=== PATIENT | female | born 1950 | race Caucasian/White ===

== ENCOUNTER 2018-07-17 06:17 | Inpatient (IN) | END 2018-07-24 15:15 | DRG 454 ==

== ENCOUNTER 2018-07-24 15:28 | Inpatient (IN) | payer MEDICARE, OTHER ==
[~2018-07-24] VITALS: Ht 165.1 cm; Wt 109.9 kg
[~2018-07-24 15:28] MED LIST: AMIT25TA9 PO; ESTR1TAB23 PO; GABA300C16 PO; LEVO150T64 PO
[2018-07-24] MEDS ORDERED: BISACODYL 10 MG SUPP PR PRN (16:00)
[2018-07-24] MEDS ORDERED: LACTULOSE 30ML CUP PO PRN (16:00)
[2018-07-24] MEDS ORDERED: MAGNESIUM HYDROXIDE 30ML CUP PO PRN (16:00)
[2018-07-24] MEDS ORDERED: PENDING SANTYL ORDER FOR WOUND CARE XX PRN (16:00)
--- NOTE | 2018-07-24 16:20 | NUR ---
Patient is a new admit from [facility]. patient is alert and breathing even.no SOB. no c/o pain at this time.lung sounds clear bilaterally. patient c/o sore throat d/t patient was intubated during her surgery. patient refused to assess her skin. stated that she wanter to rest today. explained risks and benefits. offered multiple times but patient still refused. Patient with episode of getting up unassisted. reminded patient to call when needed help. Patient with 1 Ipad and 1 iphone. asked patient if she wants to keep in the safe. patient refused and patient chose to keep it at bedside. explained the risks and benefits and still wants to keep at bed side. Verified Rehab Orders with Dr. Becerril and Verified all medications orders with Dr. Rosenbaum.
[2018-07-24] MEDS ORDERED: PHENOL 1.4% SOLN 180 ML BTL MT PRN (16:30)
[2018-07-24] MEDS ORDERED: METHOCARBAMOL 500 MG TAB PO PRN (16:30)
[2018-07-24] MEDS ORDERED: PROCHLORPERAZINE 10 MG TAB NGT PRN (16:30)
[2018-07-24] MEDS ORDERED: AL HYDROX/MG HYDROX/SIMETH 30 ML CUP PO PRN (16:30)
[2018-07-24] MEDS ORDERED: HYDROCODONE/APAP (5/325) TAB PO PRN ×2 (16:30)
[2018-07-24] MEDS ORDERED: NALOXONE (0.4 MG/ML) INJ IV PRN (16:30)
[2018-07-24] MEDS ORDERED: ONDANSETRON 4 MG INJ IV PRN (16:30)
[2018-07-24] MEDS ORDERED: HYDROmorphONE 0.5 MG/0.5 ML SYG IV PRN (16:30)
[2018-07-24 16:32] VITALS: Ht 165.1 cm; Wt 109.9 kg
[2018-07-24 16:42] VITALS: BP 166/80; PULSE 75; RESP 18
[2018-07-24] MEDS: ACETAMINOPHEN 325 MG TAB PO PRN (18:09)
[2018-07-24 20:00] VITALS: BP 157/77; PULSE 74; RESP 18
[2018-07-24] MEDS: CEPASTAT LOZENGE MT PRN (20:20)
[2018-07-24] MEDS: SENNA TAB PO SCH (20:20)
[2018-07-24] MEDS: DOCUSATE SODIUM 100 MG CAP PO SCH (20:20)
[2018-07-24] MEDS: GABAPENTIN 300 MG CAP PO SCH (20:21)
[2018-07-24] MEDS: AMITRIPTYLINE 25 MG TAB PO SCH (20:21)
[2018-07-24] MEDS: FERROUS FUMARATE (SR) TAB PO SCH (20:21)
[2018-07-25] MEDS: CEPASTAT LOZENGE MT PRN ×4 (04:13→16:44)
--- NOTE | 2018-07-25 05:50 | NUR ---
Pt resting in bed with eyes close. Pt remains stable and vitals noted WNL. Pt complained of sore throat and was given PRN Cepastat with relief. No complaints of pain on her incision site. Pt is continent of both bowel and bladder and goes to the toilet using FWW; no BM noted. Skin assessment done and noted with incision on her abdomen and 3 incisions on her back. Dressing clean, dry and intact. Hourly roundings done. Bed placed on lowest position. Both side rails up for safety. Call light and bed side table within pt's reach.
[2018-07-25] MEDS: LEVOTHYROXINE 150 MCG TAB PO SCH (06:22)
[2018-07-25 07:45] VITALS: BP 134/65; PULSE 78; RESP 20
[2018-07-25] MEDS: FERROUS FUMARATE (SR) TAB PO SCH ×2 (08:59→20:13)
[2018-07-25] MEDS: GABAPENTIN 300 MG CAP PO SCH ×2 (08:59→20:13)
[2018-07-25] MEDS: DOCUSATE SODIUM 100 MG CAP PO SCH ×2 (08:59→20:45)
[2018-07-25] MEDS: ESTRADIOL 1 MG TAB PO SCH (08:59)
--- NOTE | 2018-07-25 11:39 | NUR ---
1000 - Dr. Becerril at the unit with order for SCD's and may Titrate Oxygen to keep >92%. 1120 - spoke with Dr. Sanders over the phone with order to repeat Blood Culture x1 and dressing change order plus a wound consult. According to the doctor he just changed the dressing yesterday when the patient was still at the other floor. Per MD follow wound consult recommendation but keep an eye on the back incision with daily dressing change. 1134 - Dr. Royer Alcala at the unit covering for Dr. Rosenbaum and clarified fluid restriction order. Per MD labs are within normal limit and fluid restriction can be discontinued.
[2018-07-25 14:00] VITALS: BP 137/66; PULSE 83; RESP 18
--- NOTE | 2018-07-25 18:35 | NUR ---
End of shift summary note Patient alert, oriented and able to make needs known without complaints of pain during the shift. No noted respiratory distress and remained on oxygen via nasal cannula at 2 liters per minute with oxygen saturation ranging from 94%-97% due to SOB upon exertion. Patient was provided with recreational activity like watching TV. Built-in bed alarm activated for safety and bed placed on lowest position. Call light and bedside table placed within reach. Needs attended, kept clean and comfortable. Will endorse to next shift.
--- NOTE | 2018-07-25 19:58 | CONS ---
DATE OF ADMISSION: 07/24/2018 DATE OF CONSULTATION: 07/25/2018 TYPE OF CONSULTATION: Rehabilitation post-admission physician evaluation. REHABILITATION IMPAIRMENT CATEGORY: Spinal stenosis, degenerative disk disease, adhesions and lumbar radiculopathy status post lumbar decompression and fusion. ACTIVE COMORBIDITIES: 1. Acute pain syndrome. 2. Obesity. 3. Status post acute renal failure. 4. Hyponatremia. 5. Hypothyroidism. 6. Postop hypotension. 7. Anemia. 8. Postoperative tachycardia. 9. Impairments in self-care and mobility. HISTORY OF PRESENT ILLNESS: The patient is a very pleasant 67-year-old female who had noted increasi ng severe, radiating low back pain despite conservative measures. The patient was noted to have sigifredo re lumbar spinal stenosis and degenerative disk disease along with neurogenic claudication, unstable degenerative spondylolisthesis and bilateral radiculopathy. The patient underwent a decompressive nasima mbar laminectomy on 07/17/2018. The patient's hospital course was notable for acute renal failure, h yponatremia requiring fluid restriction, anemia requiring transfusion, hypothyroidism and postoperati ve tachycardia along with postoperative hypotension. The patient has now been cleared to transfer to the rehabilitation unit for comprehensive interdisciplinary rehab care. FUNCTIONAL HISTORY: Prior to recent events, she was independent in self-care tasks and mobility. Cu rrently, patient requires minimal to moderate assist for self-care and mobility tasks. I have reviewed the preadmission screen and the patient's current functional status is consistent wit h the preadmission screen. FAMILY AND SOCIAL HISTORY: The patient reports living at home alone and hopes to return there upon d ischarge. PAST MEDICAL HISTORY: 1. Asthma. 2. Hypothyroidism. CURRENT MEDICATIONS: 1. Tylenol p.r.n. 2. Elavil 25 mg p.o. at bedtime. 3. Ferrous fumarate 1 tab p.o. b.i.d. 4. Colace 100 mg p.o. b.i.d. 5. Estrace 1 mg p.o. daily. 6. Neurontin 300 mg p.o. b.i.d. 7. [place] p.r.n. 8. Dilaudid p.r.n. 9. Synthroid 150 mcg p.o. q.a.m. 10. Robaxin 500 mg p.o. q.8h. p.r.n. ALLERGIES: SULFA. PHYSICAL EXAMINATION: VITAL SIGNS: She is currently afebrile with stable vital signs. HEENT: Extraocular motions appear intact. Oropharynx clear. NECK: Supple. LUNGS: Clear anteriorly. CARDIAC: S1, S2. ABDOMEN: Soft, nontender, positive bowel sounds. NEUROLOGIC: She is awake and alert and oriented x3. She will follow simple 1-step commands. Crania l nerves are grossly intact. She has good strength in bilateral upper extremities. She has antigrav ity strength in bilateral lower extremities. PLAN: The patient has been admitted for comprehensive interdisciplinary acute rehab and is anticipat ed to tolerate 3 hours of daily therapy in divided doses for at least 5/7 days a week. The treatment plan will include: 1. Physical therapy to focus on bed mobility, transfers, and household ambulation with the goal of h aving the patient reach a modified independent level. 2. Occupational therapy to focus on hygiene, grooming, dressing, bathing, and toileting activities w ith the goal of having the patient reach a modified independent level. 3. Rehabilitation nursing for carryover of therapeutic interventions, the goal of continent of bowel and bladder, and pain adequately managed on oral medications in addition to improved wound healing. REHABILITATION BARRIER: Pain. INTERVENTION FOR BARRIER: Interdisciplinary approach. I acknowledge that I performed a full physical examination on this patient within 24 hours of admissi on to the rehabilitation unit and believe the patient is a good candidate for comprehensive interdisc iplinary rehab care and is anticipated to make reasonable goals in a reasonable period of time as out lined above. Dictated By: CADY BLACK MD LY/NTS Conf#: [id number] DID#: [id number] CC: CADY BLACK MD;*EndCC*
[2018-07-25 20:00] VITALS: BP 139/68; PULSE 86; RESP 18
[2018-07-25] MEDS: AMITRIPTYLINE 25 MG TAB PO SCH (20:13)
[2018-07-25] MEDS: ACETAMINOPHEN 325 MG TAB PO PRN (20:15)
[2018-07-25] MEDS: SENNA TAB PO SCH (20:45)
[2018-07-26] MEDS: CEPASTAT LOZENGE MT PRN ×3 (01:48→21:06)
[2018-07-26 02:00] VITALS: BP 134/66; PULSE 82; RESP 18
--- NOTE | 2018-07-26 06:30 | NUR ---
Assisted to toilet with SBA, voiding well to yellow urine. Pt wears her LSO brace when OOB. On O2 at 2l/min per NC, no respiratory distress noted. Medicated with Tylenol for mild back pain with good effect. Had Cepastat for throat pain, helpful. Needs attended. Call light within reached, bed alarm activated,. No acute distress noted.
[2018-07-26] MEDS: LEVOTHYROXINE 150 MCG TAB PO SCH (07:02)
[2018-07-26] MEDS: DOCUSATE SODIUM 100 MG CAP PO SCH ×2 (08:43→21:00)
[2018-07-26] MEDS: FERROUS FUMARATE (SR) TAB PO SCH ×2 (08:43→21:00)
[2018-07-26] MEDS: GABAPENTIN 300 MG CAP PO SCH ×2 (08:43→20:48)
[2018-07-26] MEDS: ESTRADIOL 1 MG TAB PO SCH ×2 (08:43→08:48)
--- NOTE | 2018-07-26 09:30 | NUR ---
Received a call from Dr. Sanders checking on his patient. Reported that patient was doing good without oxygen on while at rest satting at 99%-100%. MD recommended for patient to use incentive spirometer and educated patient regarding it. Will continue to monitor patient.
--- NOTE | 2018-07-26 12:17 | CONS ---
Date/Time of Note Date/Time of Note DATE: 07/26/18 TIME: 12:12 Assessment/Plan Assessment/Plan Hospital Course S/p decompression laminectomy for DDD/spinal stenosis with radiculopathy (07/17) now in rehab Assessment/Plan 1. Pain medication as written 2. DVT ppx 3. PT per ARU, OOB activity 4. Lozenge/spray prn sore throat 5. Hyponatremia resolved 6. NENA resolved 7. Monitor CBC. S/p transfusions Result Diagram: 07/25/18 0635 07/25/18 0635 Consultation Date/Type/Reason Admit Date/Time Jul 24, 2018 at 15:44 Date of Consultation: Jul 25, 2018 Type of Consult Internal Medicine Reason for Consultation Medical comanagement Medical comanagement, hyponatremia, anemia Hx of Present Illness 67yo F who is s/p lumbar surgery (decompressive lumbar laminectomy) on 07/17/18 d/t severe spinal stenosis with DDD and radicular symptoms who is now in ARU. Pt's post-op course c/b hyponatremia (now resolved with fluid restriction), NENA (resolved with fluids) and anemia requiring transfusion. Currently her main complaint is dry mouth and sore throat. She is using lozenges and throat spray. She is ambulating. No focal weakness. Overall feels fatigued but recognizes strength is improving. No fevers. Pain tolerable on medications. Constitutional: other (fatigue) Eyes: no complaints ENT: sore throat Cardiovascular: no complaints Gastrointestinal: no complaints Genitourinary: no complaints Musculoskeletal: other (appropriate back pain) Neurologic: no complaints Past Medical History Medical History: no pertinent history Medications Current Medications Docusate Sodium (Colace) 100 mg BID PO Last administered on 07/26/18at 08:43; Admin Dose 100 MG; Start 07/24/18 at 21:00 Senna (Senokot) 1 tab HS PO Last administered on 07/24/18at 20:20; Admin Dose 1 TAB; Start 07/24/18 at 21:00 Magnesium Hydroxide (Milk Of Mag) 30 ml BID PRN PO CONSTIPATION; Start 07/24/18 at 16:00 Lactulose (Enulose) 20 gm DAILY PRN PO CONSTIPATION; Start 07/24/18 at 16:00 Bisacodyl (Dulcolax Supp) 10 mg DAILY PRN [place] CONSTIPATION; Start 07/24/18 at 16:00 Acetaminophen (Tylenol Tab) 650 mg Q4H PRN PO PAIN Last administered on 07/25/18at 20:15; Admin Dose 650 MG; Start 07/24/18 at 16:00 [facility] This patient lopez... PRN PRN XX wound; Start 07/24/18 at 16:00 Al Hydrox/Mg Hydrox/Simethicone (Mag-Al Plus) 15 ml Q4 PRN PO upset stomach; Start 07/24/18 at 16:30 Amitriptyline HCl (Elavil) 25 mg HS PO Last administered on 07/25/18at 20:13; Admin Dose 25 MG; Start 07/24/18 at 21:00 Docusate Sodium/ Ferrous Fumarate (Yue-Sequels) 1 tab BID PO Last a dministered on 07/26/18at 08:43; Admin Dose 1 TAB; Start 07/24/18 at 21:00 Estradiol (Estrace) 1 mg DAILY PO Last administered on 07/25/18at 08:59; Admin Dose 1 MG; Start 07/25/18 at 09:00 Gabapentin (Neurontin) 300 mg BID PO Last administered on 07/25/18at 20:13; Admin Dose 300 MG; Start 07/24/18 at 21:00 Acetaminophen/ Hydrocodone Bitart ([place] (5/325)) 1 tab Q4H PRN PO MODERATE PAIN LEVEL 4-6; Start 07/24/18 at 16:30 Acetaminophen/ Hydrocodone Bitart ([place] (5/325)) 2 tab Q4H PRN PO MODERATE PAIN LEVEL 4-6; Start 07/24/18 at 16:30 Hydromorphone HCl (Dilaudid) 0.5 mg Q3H PRN IV SEVERE PAIN LEVEL 7-10; Start 07/24/18 at 16:30 Levothyroxine Sodium (Synthroid) 150 mcg DAILY@06 PO Last administered on 07/26/18at 07:02; Admin Dose 150 MCG; Start 07/25/18 at 06:00 Methocarbamol (Robaxin) 500 mg Q8H PRN PO muscle spasm ; Start 07/24/18 at 16:30 Naloxone HCl (Narcan) 0.2 mg ONCE PRN IV narcotic overdose; Start 07/24/18 at 16:30 Ondansetron HCl (Zofran Inj) 4 mg Q6H PRN IV NAUSEA AND/OR VOMITING; Start 07/24/18 at 16:30 Phenol (Cepastat Lozenge) 1 lozenge Q1H PRN [place] sore throat Last administered on 07/26/18at 07:05; Admin Dose 1 LOZENGE; Start 07/24/18 at 16:30 Phenol (Chloraseptic Throat [place]) 2 spray Q2H PRN [place] SORE THROAT; Start 07/24/18 at 16:30 Prochlorperazine (Compazine) 10 mg Q4H PRN NGT NAUSEA AND/OR VOMITING; Start 07/24/18 at 16:30 Allergies: Coded Allergies: Sulfa (Sulfonamide Antibiotics) (Verified Allergy, Unknown, 07/17/18) perfume (Verified Allergy, Unknown, CONGESTION,CANT BREATHE, 07/17/18) pork derived (porcine) (Verified Allergy, Unknown, HIVES, 07/17/18) shellfish derived (Verified Allergy, Unknown, SWELLING,HIVES, 07/17/18) Uncoded Allergies: FLUORIDE PREPARATION (Allergy, Unknown, BUMPS IN CHIN, 07/16/18) Past Surgical History Past Surgical Hx: noncontributory Family History Significant Family History: no pertinent family hx Social History Alcohol Use: rarely Smoking Status: Never smoker Drug Use: none Other Social History lives at home, previously independent with ADLs Exam/Review of Systems Vital Signs Vitals Vital Signs Date Temp Pulse Resp B/P (MAP) Pulse Ox O2 O2 Flow FiO2 Time Delivery Rate 07/26/18 Nasal 2.0 08:30 Cannula 07/26/18 98.7 82 18 134/66 7 02:00 (88) Intake and Output 07/25/18 07/25/18 07/26/18 1515:00 23:00 07:00 IntakeIntake Total 950 ml 580 ml BalanceBalance 950 ml 580 ml Exam Constitutional: alert, oriented, well developed Psych: nl mood/affect Head: normocephalic, atraumatic Eyes: EOMI ENMT: mucosa pink and moist Neck: supple Respiratory: clear to auscultation Cardiovascular: regular rate and rhythm Gastrointestinal: soft, non-tender Musculoskeletal: nl extremities to inspection Neurological: WEB ENGINEER II-XII intact, nl mental status, nl strength Medications Medications Current Medications Docusate Sodium (Colace) 100 mg BID PO Last administered on 07/26/18 08:43; Admin Dose 100 MG; Start 07/24/18 at 21:00 Senna (Senokot) 1 tab HS PO Last administered on 07/24/18at 20:20; Admin Dose 1 TAB; Start 07/24/18 at 21:00 Magnesium Hydroxide (Milk Of Mag) 30 ml BID PRN PO CONSTIPATION; Start 07/24/18 at 16:00 Lactulose (Enulose) 20 gm DAILY PRN PO CONSTIPATION; Start 07/24/18 at 16:00 Bisacodyl (Dulcolax Supp) 10 mg DAILY PRN [place] CONSTIPATION; Start 07/24/18 at 16:00 Acetaminophen (Tylenol Tab) 650 mg Q4H PRN PO PAIN Last administered on 07/25/18at 20:15; Admin Dose 650 MG; Start 07/24/18 at 16:00 Miscellaneous Information (Pending [facility] Order For Wound Care) This patient lopez... PRN PRN XX wound; Start 07/24/18 at 16:00 Al Hydrox/Mg Hydrox/Simethicone (Mag-Al Plus) 15 ml Q4 PRN PO upset stomach; Start 07/24/18 at 16:30 Amitriptyline HCl (Elavil) 25 mg HS PO Last administered on 07/25/18at 20:13; Admin Dose 25 MG; Start 07/24/18 at 21:00 Docusate Sodium/ Ferrous Fumarate (Yue-Sequels) 1 tab BID PO Last administered on 07/26/18at 08:43; Admin Dose 1 TAB; Start 07/24/18 at 21:00 Estradiol (Estrace) 1 mg DAILY PO Last administered on 07/25/18at 08:59; Admin Dose 1 MG; Start 07/25/18 at 09:00 Gabapentin (Neurontin) 300 mg BID PO Last administered on 07/25/18at 20:13; Admin Dose 300 MG; Start 07/24/18 at 21:00 Acetaminophen/ Hydrocodone Bitart ([place] (5/325)) 1 tab Q4H PRN PO MODERATE PAIN LEVEL 4-6; Start 07/24/18 at 16:30 Acetaminophen/ Hydrocodone Bitart ([place] (5/325)) 2 tab Q4H PRN PO MODERATE PAIN LEVEL 4-6; Start 07/24/18 at 16:30 Hydromorphone HCl (Dilaudid) 0.5 mg Q3H PRN IV SEVERE PAIN LEVEL 7-10; Start 07/24/18 at 16:30 Levothyroxine Sodium (Synthroid) 150 mcg DAILY@06 PO Last administered on 07/26/18at 07:02; Admin Dose 150 MCG; Start 07/25/18 at 06:00 Methocarbamol (Robaxin) 500 mg Q8H PRN PO muscle spasm ; Start 07/24/18 at 16:30 Naloxone HCl (Narcan) 0.2 mg ONCE PRN IV narcotic overdose; Start 07/24/18 at 16:30 Ondansetron HCl (Zofran Inj) 4 mg Q6H PRN IV NAUSEA AND/OR VOMITING; Start 07/24/18 at 16:30 Phenol (Cepastat Lozenge) 1 lozenge Q1H PRN [place] sore throat Last administered on 07/26/18at 07:05; Admin Dose 1 LOZENGE; Start 07/24/18 at 16:30 Phenol (Chloraseptic Throat [place]) 2 spray Q2H PRN [place] SORE THROAT; Start 07/24/18 at 16:30 Prochlorperazine (Compazine) 10 mg Q4H PRN NGT NAUSEA AND/OR VOMITING; Start 07/24/18 at 16:30 BRYCE MORENO MD Jul 26, 2018 12:16
[2018-07-26 14:20] VITALS: BP 130/62; PULSE 94; RESP 18
[2018-07-26] MEDS: ACETAMINOPHEN 325 MG TAB PO PRN ×2 (14:52→20:50)
--- NOTE | 2018-07-26 15:26 | NUR ---
During afternoon V/S check noted patient with slightly elevated temperature of 99.4F (temporal artery scan)/99.7F (oral). Noted room to be warm and encouraged patient to drink more fluids and offered cool compress. Patient complains of pain on both anterior and posterior incisions and gave Tylenol for relief. Will continue to monitor patient.
--- NOTE | 2018-07-26 15:55 | NUR ---
Patient's temperature went down to 98.4F and still encourage patient to hydrate. Continuous monitoring provided.
--- NOTE | 2018-07-26 18:28 | NUR ---
End of shift summary note: Patient seen not in distress or discomfort; able to verbalize needs with complaints of pain during the shift and was medicated with Tylenol 650mg PO PRN Q4H; relief noted. No shortness of breath or difficulty of breathing noted. All due medications given. Health teaching provided regarding medication Neurontin. Participated with therapy as tolerated. Recreational activity offered like watching TV. Call light and bedside table placed within reach. Bed alarm activated for safety. Continuous monitoring provided and needs attended. Will endorse to next shift.
[2018-07-26 20:00] VITALS: BP 132/65; PULSE 86; RESP 18
[2018-07-26] MEDS: AMITRIPTYLINE 25 MG TAB PO SCH (20:48)
[2018-07-26] MEDS: SENNA TAB PO SCH (21:00)
[2018-07-27 02:00] VITALS: BP 127/64; PULSE 81; RESP 18
--- NOTE | 2018-07-27 06:18 | NUR ---
Slept well. Resp unlabored. Medicated for back pain with tylenol with good effect. Assisted to toilet, voiding well without difficulty. Needs attended. Call light within reached, bed alarm activated. No acute distress noted.
[2018-07-27] MEDS: LEVOTHYROXINE 150 MCG TAB PO SCH (06:26)
[2018-07-27] MEDS: CEPASTAT LOZENGE MT PRN ×2 (06:27→10:36)
[2018-07-27 08:00] VITALS: BP 148/74; PULSE 85; RESP 20
[2018-07-27] MEDS: GABAPENTIN 300 MG CAP PO SCH ×2 (08:29→20:39)
[2018-07-27] MEDS: FERROUS FUMARATE (SR) TAB PO SCH ×2 (08:29→20:39)
[2018-07-27] MEDS: ESTRADIOL 1 MG TAB PO SCH (08:29)
[2018-07-27] MEDS: DOCUSATE SODIUM 100 MG CAP PO SCH ×2 (08:29→20:39)
--- NOTE | 2018-07-27 09:47 | PN ---
Date/Time of Note Date/Time of Note DATE: 07/27/18 TIME: 09:47 Objective Vital Signs Date Temp Pulse Resp B/P (MAP) Pulse Ox O2 O2 Flow FiO2 Time Delivery Rate 07/27/18 2.0 05:46 07/27/18 98.4 81 18 127/64 95 Room Air 02:00 (85) Intake and Output 07/26/18 07/26/18 07/27/18 1515:00 23:00 07:00 IntakeIntake Total 900 ml BalanceBalance 900 ml Exam INTERDISCIPLINARY TEAM CONFERENCE EXAM PULM-cta ABD-soft, b.s. BOWEL- Cont BLADDER-Cont SKIN- improving OT- DRESSING-min BATHING-min TOILETING-min PT- BED MOBILITY-sba TRANSFERS-sba AMBULATION-sba 150 feet A/P- Interdisciplinary team conference held today. Please see interdisciplinary sheet. Working toward d.c. on 08/01 with post discharge follow up of physical therapy, occupational therapy. Results/Medications Result Diagram: 07/27/1862007/27/18 0621 Results 24 hrs Laboratory Tests Test 07/27/18 06:21 White Blood Count 6.0 Red Blood Count 3.53 L Hemoglobin 10.2 L Hematocrit 31.4 L Mean Corpuscular Volume 89.0 Mean Corpuscular Hemoglobin 28.9 L Mean Corpuscular Hemoglobin Concent 32.5 Red Cell Distribution Width 13.7 Platelet Count 371 # Mean Platelet Volume 9.7 Immature Granulocytes % 0.800 H Neutrophils % 59.7 Lymphocytes % 22.9 Monocytes % 8.7 Eosinophils % 7.2 H Basophils % 0.7 Nucleated Red Blood Cells % 0.0 Immature Granulocytes # 0.050 H Neutrophils # 3.6 Lymphocytes # 1.4 Monocytes # 0.5 Eosinophils # 0.4 Basophils # 0.0 Nucleated Red Blood Cells # 0.0 Sodium Level 135 Potassium Level 4.0 Chloride Level 103 Carbon Dioxide Level 27 Anion Gap 5 Blood Urea Nitrogen 10 Creatinine 0.63 Est Glomerular Filtrat Rate mL/min > 60 Glucose Level 98 Calcium Level 8.7 Medications Current Medications Docusate Sodium (Colace) 100 mg BID PO Last administered on 07/27/18at 08:29; Admin Dose 100 MG; Start 07/24/18 at 21:00 Senna (Senokot) 1 tab HS PO Last administered on 07/24/18at 20:20; Admin Dose 1 TAB; Start 07/24/18 at 21:00 Magnesium Hydroxide (Milk Of Mag) 30 ml BID PRN PO CONSTIPATION; Start 07/24/18 at 16:00 Lactulose (Enulose) 20 gm DAILY PRN PO CONSTIPATION; Start 07/24/18 at 16:00 Bisacodyl (Dulcolax Supp) 10 mg DAILY PRN [place] CONSTIPATION; Start 07/24/18 at 16:00 Acetaminophen (Tylenol Tab) 650 mg Q4H PRN PO PAIN Last administered on 07/26/18at 20:50; Admin Dose 650 MG; Start 07/24/18 at 16:00 Miscellaneous Information (Pending [facility] Order For Wound Care) This patient lopez... PRN PRN XX wound; Start 07/24/18 at 16:00 Al Hydrox/Mg Hydrox/Simethicone (Mag-Al Plus) 15 ml Q4 PRN PO upset stomach; Start 07/24/18 at 16:30 Amitriptyline HCl (Elavil) 25 mg HS PO Last administered on 07/26/18at 20:48; Admin Dose 25 MG; Start 07/24/18 at 21:00 Docusate Sodium/ Ferrous Fumarate (Yue-Sequels) 1 tab BID PO Last administered on 07/27/18at 08:29; Admin Dose 1 TAB; Start 07/24/18 at 21:00 Estradiol (Estrace) 1 mg DAILY PO Last administered on 07/27/18at 08:29; Admin Dose 1 MG; Start 07/25/18 at 09:00 Gabapentin (Neurontin) 300 mg BID PO Last administered on 07/27/18at 08:29; Admin Dose 300 MG; Start 07/24/18 at 21:00 Acetaminophen/ Hydrocodone Bitart ([place] (5/325)) 1 tab Q4H PRN PO MODERATE PAIN LEVEL 4-6; Start 07/24/18 at 16:30 Acetaminophen/ Hydrocodone Bitart ([place] (5/325)) 2 tab Q4H PRN PO MODERATE PAIN LEVEL 4-6; Start 07/24/18 at 16:30 Hydromorphone HCl (Dilaudid) 0.5 mg Q3H PRN IV SEVERE PAIN LEVEL 7-10; Start 07/24/18 at 16:30 Levothyroxine Sodium (Synthroid) 150 mcg DAILY@06 PO Last administered on 07/27/18at 06:26; Admin Dose 150 MCG; Start 07/25/18 at 06:00 Methocarbamol (Robaxin) 500 mg Q8H PRN PO muscle spasm ; Start 07/24/18 at 16:30 Naloxone HCl (Narcan) 0.2 mg ONCE PRN IV narcotic overdose; Start 07/24/18 at 16:30 Ondansetron HCl (Zofran Inj) 4 mg Q6H PRN IV NAUSEA AND/OR VOMITING; Start 07/24/18 at 16:30 Phenol (Cepastat Lozenge) 1 lozenge Q1H PRN [place] sore throat Last administered on 07/27/18at 06:27; Admin Dose 1 LOZENGE; Start 07/24/18 at 16:30 Phenol (Chloraseptic Throat [place]) 2 spray Q2H PRN [place] SORE THROAT; Start 07/24/18 at 16:30 Prochlorperazine (Compazine) 10 mg Q4H PRN NGT NAUSEA AND/OR VOMITING; Start 07/24/18 at 16:30 CADY BLACK MD Jul 27, 2018 09:47
--- NOTE | 2018-07-27 11:00 | NUR ---
Medication regimen reviewed with Dr Becerril with a new order of discontinue Dilaudid IV. Noted & carried out. Patient aware & agrees.
--- NOTE | 2018-07-27 12:39 | CONS ---
Date/Time of Note Date/Time of Note DATE: 07/27/18 TIME: 12:38 Assessment/Plan Assessment/Plan Assessment/Plan 1. Pain medication as written 2. DVT ppx 3. PT per ARU, OOB activity 4. Lozenge/spray prn sore throat 5. Hyponatremia resolved 6. NENA resolved 7. Monitor CBC. S/p transfusions Result Diagram: 07/27/18 0621 07/27/18 0621 Results 24hrs Laboratory Tests Test 07/27/18 06:21 White Blood Count 6.0 Red Blood Count 3.53 L Hemoglobin 10.2 L Hematocrit 31.4 L Mean Corpuscular Volume 89.0 Mean Corpuscular Hemoglobin 28.9 L Mean Corpuscular Hemoglobin Concent 32.5 Red Cell Distribution Width 13.7 Platelet Count 371 # Mean Platelet Volume 9.7 Immature Granulocytes % 0.800 H Neutrophils % 59.7 Lymphocytes % 22.9 Monocytes % 8.7 Eosinophils % 7.2 H Basophils % 0.7 Nucleated Red Blood Cells % 0.0 Immature Granulocytes # 0.050 H Neutrophils # 3.6 Lymphocytes # 1.4 Monocytes # 0.5 Eosinophils # 0.4 Basophils # 0.0 Nucleated Red Blood Cells # 0.0 Sodium Level 135 Potassium Level 4.0 Chloride Level 103 Carbon Dioxide Level 27 Anion Gap 5 Blood Urea Nitrogen 10 Creatinine 0.63 Est Glomerular Filtrat Rate mL/min > 60 Glucose Level 98 Calcium Level 8.7 Consultation Date/Type/Reason Admit Date/Time Jul 24, 2018 at 15:44 Initial Consult Date 07/25/18 24 HR Interval Summary Free Text/Dictation Up in chair. Still has sore throat, lozenges helping Exam/Review of Systems Vital Signs Vitals Vital Signs Date Temp Pulse Resp B/P (MAP) Pulse Ox O2 O2 Flow FiO2 Time Delivery Rate 07/27/18 2.0 05:46 07/27/18 98.4 81 18 127/64 95 Room Air 02:00 (85) Intake and Output 07/26/18 07/26/18 07/27/18 1515:00 23:00 07:00 IntakeIntake Total 900 ml BalanceBalance 900 ml Exam Constitutional: alert Respiratory: clear to auscultation Cardiovascular: regular rate and rhythm Gastrointestinal: soft, non-tender Extremities: No edema Medications Medications Current Medications Docusate Sodium (Colace) 100 mg BID PO Last administered on 07/27/18 08:29; Admin Dose 100 MG; Start 07/24/18 at 21:00 Senna (Senokot) 1 tab HS PO Last administered on 07/24/18at 20:20; Admin Dose 1 TAB; Start 07/24/18 at 21:00 Magnesium Hydroxide (Milk Of Mag) 30 ml BID PRN PO CONSTIPATION; Start 07/24/18 at 16:00 Lactulose (Enulose) 20 gm DAILY PRN PO CONSTIPATION; Start 07/24/18 at 16:00 Bisacodyl (Dulcolax Supp) 10 mg DAILY PRN [place] CONSTIPATION; Start 07/24/18 at 16:00 Acetaminophen (Tylenol Tab) 650 mg Q4H PRN PO PAIN Last administered on 07/26/18at 20:50; Admin Dose 650 MG; Start 07/24/18 at 16:00 Miscellaneous Information (Pending Santyl Order For Wound Care) This patient lopez... PRN PRN XX wound; Start 07/24/18 at 16:00 Al Hydrox/Mg Hydrox/Simethicone (Mag-Al Plus) 15 ml Q4 PRN PO upset stomach; Start 07/24/18 at 16:30 Amitriptyline HCl (Elavil) 25 mg HS PO Last administered on 07/26/18at 20:48; Admin Dose 25 MG; Start 07/24/18 at 21:00 Docusate Sodium/ Ferrous Fumarate (Yue-Sequels) 1 tab BID PO Last administered on 07/27/18at 08:29; Admin Dose 1 TAB; Start 07/24/18 at 21:00 Estradiol (Estrace) 1 mg DAILY PO Last administered on 07/27/18at 08:29; Admin Dose 1 MG; Start 07/25/18 at 09:00 Gabapentin (Neurontin) 300 mg BID PO Last administered on 07/27/18 08:29; Admin Dose 300 MG; Start 07/24/18 at 21:00 Acetaminophen/ Hydrocodone Bitart ([place] (5/325)) 1 tab Q4H PRN PO MODERATE PAIN LEVEL 4-6; Start 07/24/18 at 16:30 Acetaminophen/ Hydrocodone Bitart ([place] (5/325)) 2 tab Q4H PRN PO MODERATE PAIN LEVEL 4-6; Start 07/24/18 at 16:30 Hydromorphone HCl (Dilaudid) 0.5 mg Q3H PRN IV SEVERE PAIN LEVEL 7-10; Start 07/24/18 at 16:30 Levothyroxine Sodium (Synthroid) 150 mcg DAILY@06 PO Last administered on 07/27/18at 06:26; Admin Dose 150 MCG; Start 07/25/18 at 06:00 Methocarbamol (Robaxin) 500 mg Q8H PRN PO muscle spasm ; Start 07/24/18 at 16:30 Naloxone HCl (Narcan) 0.2 mg ONCE PRN IV narcotic overdose; Start 07/24/18 at 16:30 Ondansetron HCl (Zofran Inj) 4 mg Q6H PRN IV NAUSEA AND/OR VOMITING; Start 07/24/18 at 16:30 Phenol (Cepastat Lozenge) 1 lozenge Q1H PRN MT sore throat Last administered on 07/27/18at 10:36; Admin Dose 1 LOZENGE; Start 07/24/18 at 16:30 Phenol (Chloraseptic Throat [place]) 2 spray Q2H PRN [place] SORE THROAT; Start 07/24/18 at 16:30 Prochlorperazine (Compazine) 10 mg Q4H PRN NGT NAUSEA AND/OR VOMITING; Start 07/24/18 at 16:30 URMILA MCDERMOTT MD Jul 27, 2018 12:39
--- NOTE | 2018-07-27 12:44 | NUR ---
WOUND CONSULT FOR INCISIONS: 67 year old female s/p anterior retroperitoneal fusion of lumbosacral spine on 07/17/[address] Fco Sanders. Patient last seen by wound nurse in the acute unit on 07/24/18. Left anterior abdominal and lumbar-sacral incisions. Incisions dry, clean, and intact per photo documentations. Keep incision dry and clean. Please notify Dr. Sanders if any change of condition of incisions. Discussed with RNDulce. - Sammie Tong, BSN RN CWOCN
[2018-07-27 14:00] VITALS: BP 129/81; RESP 19
--- NOTE | 2018-07-27 17:00 | NUR ---
Patient in bed talking to her daughter in the cellphone. Alert, oriented x 4. No SOB. Denies pain. Offered educational materials & TV for recreational activities. Wound dressing change done on patient's incision site in the back & abdomen. No redness & drainage noted. Wound clean & dry. Patient tolerated procedure well. Kept clean & dry. All due meds given. Call light within reach. Bed alarm on & in low position. Kept comfortable.
[2018-07-27 20:00] VITALS: BP 136/68; PULSE 80; RESP 18
[2018-07-27] MEDS: SENNA TAB PO SCH (20:39)
[2018-07-27] MEDS: AMITRIPTYLINE 25 MG TAB PO SCH (20:39)
[2018-07-27] MEDS: ACETAMINOPHEN 325 MG TAB PO PRN (20:40)
[2018-07-28 02:00] VITALS: BP 132/66; PULSE 80; RESP 18
[2018-07-28] MEDS: CEPASTAT LOZENGE MT PRN ×4 (03:03→23:15)
--- NOTE | 2018-07-28 06:23 | NUR ---
Slept well. Medicated for back pain x1 with tylenol with good effect. Voiiding well with SBA to toilet, uses LSO brace when OOB. Needs attended. Call light within reached, bed alarm activated. No acute distress noted. No acute distress noted.
[2018-07-28] MEDS: LEVOTHYROXINE 150 MCG TAB PO SCH (06:51)
[2018-07-28 08:00] VITALS: BP 141/62; PULSE 88; RESP 19
[2018-07-28] MEDS: FERROUS FUMARATE (SR) TAB PO SCH ×2 (08:18→20:12)
[2018-07-28] MEDS: ESTRADIOL 1 MG TAB PO SCH (08:18)
[2018-07-28] MEDS: DOCUSATE SODIUM 100 MG CAP PO SCH ×2 (08:18→20:12)
[2018-07-28] MEDS: GABAPENTIN 300 MG CAP PO SCH ×2 (08:18→20:12)
--- NOTE | 2018-07-28 10:50 | PN ---
Date/Time of Note Date/Time of Note DATE: 07/28/18 TIME: 10:50 Subjective Overall feeling better. Still with sore throat Objective Vital Signs Date Temp Pulse Resp B/P (MAP) Pulse Ox O2 O2 Flow FiO2 Time Delivery Rate 07/28/18 2.0 06:42 07/28/18 98.5 80 18 132/66 97 Room Air 02:00 (88) Intake and Output 07/27/18 07/27/18 07/28/18 1515:00 23:00 07:00 IntakeIntake Total 1200 ml 520 ml BalanceBalance 1200 ml 520 ml Exam pulm-cta abd-soft sba ambulation Results/Medications Result Diagram: 07/27/1862007/27/18620 Medications Current Medications Docusate Sodium (Colace) 100 mg BID PO Last administered on 07/28/18at 08:18; Admin Dose 100 MG; Start 07/24/18 at 21:00 Senna (Senokot) 1 tab HS PO Last administered on 07/27/18at 20:39; Admin Dose 1 TAB; Start 07/24/18 at 21:00 Magnesium Hydroxide (Milk Of Mag) 30 ml BID PRN PO CONSTIPATION; Start 07/24/18 at 16:00 Lactulose (Enulose) 20 gm DAILY PRN PO CONSTIPATION; Start 07/24/18 at 16:00 Bisacodyl (Dulcolax Supp) 10 mg DAILY PRN [place] CONSTIPATION; Start 07/24/18 at 16:00 Acetaminophen (Tylenol Tab) 650 mg Q4H PRN PO PAIN Last administered on 07/27/18at 20:40; Admin Dose 650 MG; Start 07/24/18 at 16:00 [facility] This patient lopez... PRN PRN XX wound; Start 07/24/18 at 16:00 Al Hydrox/Mg Hydrox/Simethicone (Mag-Al Plus) 15 ml Q4 PRN PO upset stomach; Start 07/24/18 at 16:30 Amitriptyline HCl (Elavil) 25 mg HS PO Last administered on 07/27/18at 20:39; Admin Dose 25 MG; Start 07/24/18 at 21:00 Docusate Sodium/ Ferrous Fumarate (Yue-Sequels) 1 tab BID PO Last administered on 07/28/18 08:18; Admin Dose 1 TAB; Start 07/24/18 at 21:00 Estradiol (Estrace) 1 mg DAILY PO Last administered on 07/28/18 08:18; Admin Dose 1 MG; Start 07/25/18 at 09:00 Gabapentin (Neurontin) 300 mg BID PO Last administered on 07/28/18 08:18; Admin Dose 300 MG; Start 07/24/18 at 21:00 Acetaminophen/ Hydrocodone Bitart ([place] (5/325)) 1 tab Q4H PRN PO PAIN LEVEL 1-5; Start 07/24/18 at 16:30 Acetaminophen/ Hydrocodone Bitart ([place] (5/325)) 2 tab Q4H PRN PO PAIN LEVEL 6-10; Start 07/24/18 at 16:30 Levothyroxine Sodium (Synthroid) 150 mcg DAILY@06 PO Last administered on 07/28/18 06:51; Admin Dose 150 MCG; Start 07/25/18 at 06:00 Methocarbamol (Robaxin) 500 mg Q8H PRN PO muscle spasm ; Start 07/24/18 at 16:30 Naloxone HCl (Narcan) 0.2 mg ONCE PRN IV narcotic overdose; Start 07/24/18 at 16:30 Ondansetron HCl (Zofran Inj) 4 mg Q6H PRN IV NAUSEA AND/OR VOMITING; Start 07/24/18 at 16:30 Phenol (Cepastat Lozenge) 1 lozenge Q1H PRN MT sore throat Last administered on 07/28/18 08:18; Admin Dose 1 LOZENGE; Start 07/24/18 at 16:30 Phenol (Chloraseptic Throat [place]) 2 spray Q2H PRN [place] SORE THROAT; Start 07/24/18 at 16:30 Prochlorperazine (Compazine) 10 mg Q4H PRN NGT NAUSEA AND/OR VOMITING; Start 07/24/18 at 16:30 Assessment/Plan Additional Assessment/Plan Rehab- Spinal stenosis, degenerative disk disease, adhesions and lumbar radiculopathy status post lumbar decompression and fusion. Excellent progress. We are working towards home with home health follow up Friday. Acute pain syndrome-under good control Status post acute renal failure. Hyponatremia- resolved Hypothyroidism. Anemia. CADY BLACK MD Jul 28, 2018 10:50
[2018-07-28 14:00] VITALS: BP 130/66; RESP 20
--- NOTE | 2018-07-28 17:00 | NUR ---
Patient in bed browsing her iPad. Alert, oriented x 4. No SOB. Denies pain. Offered educational materials & TV for recreational activities. Wound dressing change done on patient's incision site in the back & abdomen. No redness & drainage noted. Wound clean & dry. Patient tolerated procedure well. Kept clean & dry. All due meds given. Call light within reach. Bed alarm on & in low position. Kept comfortable.
[2018-07-28 20:00] VITALS: BP 123/72; PULSE 91; RESP 20
[2018-07-28] MEDS: SENNA TAB PO SCH (20:12)
[2018-07-28] MEDS: AMITRIPTYLINE 25 MG TAB PO SCH (20:12)
[2018-07-29] MEDS: CEPASTAT LOZENGE MT PRN ×2 (05:48→21:03)
[2018-07-29] MEDS: LEVOTHYROXINE 150 MCG TAB PO SCH (05:48)
[2018-07-29 05:58] VITALS: BP 121/59; PULSE 91; RESP 20
[2018-07-29 07:45] VITALS: BP 128/59; PULSE 88; RESP 18
[2018-07-29] MEDS: GABAPENTIN 300 MG CAP PO SCH ×2 (08:58→21:04)
[2018-07-29] MEDS: DOCUSATE SODIUM 100 MG CAP PO SCH ×2 (08:58→21:00)
[2018-07-29] MEDS: ESTRADIOL 1 MG TAB PO SCH (08:58)
[2018-07-29] MEDS: FERROUS FUMARATE (SR) TAB PO SCH ×2 (08:58→21:04)
--- NOTE | 2018-07-29 09:30 | CONS ---
Date/Time of Note Date/Time of Note DATE: 07/29/18 TIME: 09:28 Assessment/Plan Assessment/Plan Result Diagram: 07/27/18 0621 07/27/18 0621 Results 24hrs 1. Doing well post op lumbar back surgery 2. Nasal congestion, will add ocean spray 3. Anemia is stable Consultation Date/Type/Reason Admit Date/Time Jul 24, 2018 at 15:44 Initial Consult Date 07/25/18 Detailed Summary ENT: other (sinus are full without "colored" nasal dc) Respiratory: No cough, No shortness of breath Cardiovascular: No chest pain, No lightheadedness Gastrointestinal: No no complaints Genitourinary: No no complaints Musculoskeletal: back pain (is less and she has no radic leg pain) Exam/Review of Systems Vital Signs Vitals Vital Signs Date Temp Pulse Resp B/P (MAP) Pulse Ox O2 O2 Flow FiO2 Time Delivery Rate 07/29/18 98.4 88 18 128/59 95 Room Air 07:45 (82) 07/28/18 2.0 06:42 Intake and Output 07/28/18 07/28/18 07/29/18 1515:00 23:00 07:00 IntakeIntake Total 450 ml 650 ml 450 ml BalanceBalance 450 ml 650 ml 450 ml Exam Neck: No jvd Respiratory: clear to auscultation Cardiovascular: regular rate and rhythm Gastrointestinal: soft Extremities: No edema (and no calf tend) Medications Medications Current Medications Docusate Sodium (Colace) 100 mg BID PO Last administered on 07/29/18at 08:58; Admin Dose 100 MG; Start 07/24/18 at 21:00 Senna (Senokot) 1 tab HS PO Last administered on 07/28/18at 20:12; Admin Dose 1 TAB; Start 07/24/18 at 21:00 Magnesium Hydroxide (Milk Of Mag) 30 ml BID PRN PO CONSTIPATION; Start 07/24/18 at 16:00 Lactulose (Enulose) 20 gm DAILY PRN PO CONSTIPATION; Start 07/24/18 at 16:00 Bisacodyl (Dulcolax Supp) 10 mg DAILY PRN [place] CONSTIPATION; Start 07/24/18 at 16:00 Acetaminophen (Tylenol Tab) 650 mg Q4H PRN PO PAIN Last administered on 07/27/18at 20:40; Admin Dose 650 MG; Start 07/24/18 at 16:00 Miscellaneous Information (Pending Santyl Order For Wound Care) This patient lopez... PRN PRN XX wound; Start 07/24/18 at 16:00 Al Hydrox/Mg Hydrox/Simethicone (Mag-Al Plus) 15 ml Q4 PRN PO upset stomach; Start 07/24/18 at 16:30 Amitriptyline HCl (Elavil) 25 mg HS PO Last administered on 07/28/18 20:12; Admin Dose 25 MG; Start 07/24/18 at 21:00 Docusate Sodium/ Ferrous Fumarate (Yue-Sequels) 1 tab BID PO Last administered on 07/29/18 08:58; Admin Dose 1 TAB; Start 07/24/18 at 21:00 Estradiol (Estrace) 1 mg DAILY PO Last administered on 07/29/18 08:58; Admin Dose 1 MG; Start 07/25/18 at 09:00 Gabapentin (Neurontin) 300 mg BID PO Last administered on 07/29/18 08:58; Admin Dose 300 MG; Start 07/24/18 at 21:00 Acetaminophen/ Hydrocodone Bitart ([place] (5/325)) 1 tab Q4H PRN PO PAIN LEVEL 1-5; Start 07/24/18 at 16:30 Acetaminophen/ Hydrocodone Bitart ([place] (5/325)) 2 tab Q4H PRN PO PAIN LEVEL 6-10; Start 07/24/18 at 16:30 Levothyroxine Sodium (Synthroid) 150 mcg DAILY@06 PO Last administered on 07/29/18 05:48; Admin Dose 150 MCG; Start 07/25/18 at 06:00 Methocarbamol (Robaxin) 500 mg Q8H PRN PO muscle spasm ; Start 07/24/18 at 16:30 Naloxone HCl (Narcan) 0.2 mg ONCE PRN IV narcotic overdose; Start 07/24/18 at 16:30 Ondansetron HCl (Zofran Inj) 4 mg Q6H PRN IV NAUSEA AND/OR VOMITING; Start 07/24/18 at 16:30 Phenol (Cepastat Lozenge) 1 lozenge Q1H PRN MT sore throat Last administered on 07/29/18 05:48; Admin Dose 1 LOZENGE; Start 07/24/18 at 16:30 Phenol (Chloraseptic Throat [place]) 2 spray Q2H PRN [place] SORE THROAT; Start 07/24/18 at 16:30 Prochlorperazine (Compazine) 10 mg Q4H PRN NGT NAUSEA AND/OR VOMITING; Start 07/24/18 at 16:30 FRANCESCA GARRISON MD Jul 29, 2018 09:30
[2018-07-29] MEDS: SALINE 0.65% 45 ML NAS SPRAY NASAL SCH ×2 (11:24→21:04)
--- NOTE | 2018-07-29 11:27 | PN ---
Date/Time of Note Date/Time of Note DATE: 07/29/18 TIME: 11:26 Subjective Patient continues to do well, reports pain under good control Objective Vital Signs Date Temp Pulse Resp B/P (MAP) Pulse Ox O2 O2 Flow FiO2 Time Delivery Rate 07/29/18 98.4 88 18 128/59 95 Room Air 07:45 (82) 07/28/18 2.0 06:42 Intake and Output 07/28/18 07/28/18 07/29/18 1515:00 23:00 07:00 IntakeIntake Total 450 ml 650 ml 450 ml BalanceBalance 450 ml 650 ml 450 ml Exam pulm-cta abd-soft sba ambulation Results/Medications Result Diagram: 07/27/1862007/27/18620 Medications Current Medications Docusate Sodium (Colace) 100 mg BID PO Last administered on 07/29/18at 08:58; Admin Dose 100 MG; Start 07/24/18 at 21:00 Senna (Senokot) 1 tab HS PO Last administered on 07/28/18 20:12; Admin Dose 1 TAB; Start 07/24/18 at 21:00 Magnesium Hydroxide (Milk Of Mag) 30 ml BID PRN PO CONSTIPATION; Start 1 09/24/17 at 16:00 Lactulose (Enulose) 20 gm DAILY PRN PO CONSTIPATION; Start 07/24/18 at 16:00 Bisacodyl (Dulcolax Supp) 10 mg DAILY PRN [place] CONSTIPATION; Start 07/24/18 at 16:00 Acetaminophen (Tylenol Tab) 650 mg Q4H PRN PO PAIN Last administered on 07/27/18at 20:40; Admin Dose 650 MG; Start 07/24/18 at 16:00 Miscellaneous Information (Pending [facility] Order For Wound Care) This patient lopez... PRN PRN XX wound; Start 07/24/18 at 16:00 Al Hydrox/Mg Hydrox/Simethicone (Mag-Al Plus) 15 ml Q4 PRN PO upset stomach; Start 07/24/18 at 16:30 Amitriptyline HCl (Elavil) 25 mg HS PO Last administered on 07/28/18 20:12; Admin Dose 25 MG; Start 07/24/18 at 21:00 Docusate Sodium/ Ferrous Fumarate (Yue-Sequels) 1 tab BID PO Last administered on 07/29/18 08:58; Admin Dose 1 TAB; Start 07/24/18 at 21:00 Estradiol (Estrace) 1 mg DAILY PO Last administered on 07/29/18 08:58; Admin Dose 1 MG; Start 07/25/18 at 09:00 Gabapentin (Neurontin) 300 mg BID PO Last administered on 07/29/18 08:58; Admin Dose 300 MG; Start 07/24/18 at 21:00 Acetaminophen/ Hydrocodone Bitart ([place] (5/325)) 1 tab Q4H PRN PO PAIN LEVEL 1-5; Start 07/24/18 at 16:30 Acetaminophen/ Hydrocodone Bitart ([place] (5/325)) 2 tab Q4H PRN PO PAIN LEVEL 6-10; Start 07/24/18 at 16:30 Levothyroxine Sodium (Synthroid) 150 mcg DAILY@06 PO Last administered on 07/29/18 05:48; Admin Dose 150 MCG; Start 07/25/18 at 06:00 Methocarbamol (Robaxin) 500 mg Q8H PRN PO muscle spasm ; Start 07/24/18 at 16:30 Naloxone HCl (Narcan) 0.2 mg ONCE PRN IV narcotic overdose; Start 07/24/18 at 16:30 Ondansetron HCl (Zofran Inj) 4 mg Q6H PRN IV NAUSEA AND/OR VOMITING; Start 07/24/18 at 16:30 Phenol (Cepastat Lozenge) 1 lozenge Q1H PRN MT sore throat Last administered on 07/29/18 05:48; Admin Dose 1 LOZENGE; Start 07/24/18 at 16:30 Phenol (Chloraseptic Throat [place]) 2 spray Q2H PRN [place] SORE THROAT; Start 07/24/18 at 16:30 Prochlorperazine (Compazine) 10 mg Q4H PRN NGT NAUSEA AND/OR VOMITING; Start 07/24/18 at 16:30 Sodium Chloride ([place]) 2 spray BID NASAL Last administered on 07/29/18 11:24; Admin Dose 2 SPRAY; Start 07/29/18 at 10:00 Assessment/Plan Additional Assessment/Plan Rehab- Spinal stenosis, degenerative disk disease, adhesions and lumbar radiculopathy status post lumbar decompression and fusion. Great gains, continue current plan Acute pain syndrome-under good control Status post acute renal failure. Hyponatremia- resolved Hypothyroidism. Anemia. CADY BLACK MD Jul 29, 2018 11:27
--- NOTE | 2018-07-29 11:30 | NUR ---
Patient seen not in distress or discomfort this time. Education provided regarding on campus therapeutic outing and went down with one of the therapist. Pt came back after 15-20 minutes in stable condition. Will continue to monitor patient.
--- NOTE | 2018-07-29 12:55 | NUR ---
Spoke with Dr. Sanders with order for XR 2V Lumbar Spine (upright standing) and per MD bennett to take off brace during xray; noted and carried out.
[2018-07-29 15:00] VITALS: BP 125/62; PULSE 98; RESP 19
--- NOTE | 2018-07-29 16:30 | NUR ---
Patient noted with elevated temperature of 100.2F. Cooling measures provided and encouraged to increase fluid intake. Relayed report to Dr. Rosenbaum and result of UA C&S as well with new orders of Urinalysis, Urine Culture, 2 Blood Cultures (15 min apart) and CBC today;noted and carried out. Offered Tylenol for elevated temperature. Needs attended and will continue to monitor patient.
[2018-07-29] MEDS: ACETAMINOPHEN 325 MG TAB PO PRN (16:36)
--- NOTE | 2018-07-29 18:37 | NUR ---
End of shift summary note Patient seen on bed awake, able to make needs known without complaints of pain this time. Temperature was rechecked at 1750 with reading of 99.6F (oral) and again at 1830 with reading of 98F (temporal). Patient was encouraged to hydrate. All due medications given during the shift. Denies shortness of breath or difficulty of breathing. No nausea or vomiting noted. Recreational activity offered like watching TV and participated with therapy today. Call light and bedside table placed within reach. Bed alarm activated for safety and bed placed on lowest position. Needs attended and anticipated. Will endorse to next shift.
[2018-07-29 20:29] VITALS: BP 129/55; PULSE 88; RESP 18
[2018-07-29] MEDS: SENNA TAB PO SCH (21:00)
[2018-07-29] MEDS: AMITRIPTYLINE 25 MG TAB PO SCH (21:04)
--- NOTE | 2018-07-30 05:25 | NUR ---
Patient slept well during the night. No c/o pain. No distress. Voids without difficulty. Lozenge given for sore throat. Needs attended. Refused colace and senokot last night, had BM x2 yesterday. Hourly rounding done. Call light and table within reach. Instructed to call for assistance.
[2018-07-30 05:40] VITALS: BP 132/61; PULSE 92; RESP 20
[2018-07-30] MEDS: LEVOTHYROXINE 150 MCG TAB PO SCH (06:26)
[2018-07-30] MEDS: CEPASTAT LOZENGE MT PRN ×3 (06:36→21:21)
[2018-07-30 08:06] VITALS: BP 121/56; PULSE 95; RESP 20
[2018-07-30] MEDS: ACETAMINOPHEN 325 MG TAB PO PRN ×2 (08:06→21:15)
[2018-07-30] MEDS: FERROUS FUMARATE (SR) TAB PO SCH ×2 (08:06→21:06)
[2018-07-30] MEDS: SALINE 0.65% 45 ML NAS SPRAY NASAL SCH ×2 (08:06→21:06)
[2018-07-30] MEDS: ESTRADIOL 1 MG TAB PO SCH (08:06)
[2018-07-30] MEDS: GABAPENTIN 300 MG CAP PO SCH ×2 (08:06→21:06)
[2018-07-30] MEDS: DOCUSATE SODIUM 100 MG CAP PO SCH ×2 (08:06→08:07)
--- NOTE | 2018-07-30 09:42 | NUR ---
PT NOTE: [id number] Pt agreeable to PT tx. Noted dec safety awareness. Pt found sitting in WC, observed getting up from the WC with the brakes off and the footrests in place. Educated on safety, risks for falls and to make sure WC brakes are on and footrest out of the way prior to getting up; pt demo poor carryover. Pt stated "I'll be ok and I just step over the foot rests." Reinforced safety and fall prevention with fair understanding.
--- NOTE | 2018-07-30 10:25 | CONS ---
Date/Time of Note Date/Time of Note DATE: 07/30/18 TIME: 10:24 Assessment/Plan Assessment/Plan Assessment/Plan 1. Post op lumbar back surgery, doing much better 2. Sinus congestion and voice is improving 3. Anemia is stable 4. Cont pt and ot Result Diagram: 07/30/18 0716 07/30/18 0716 Results 24hrs Laboratory Tests Test 07/29/18 16:40 07/29/18 16:45 07/30/18 07:16 White Blood Count 6.3 5.3 Red Blood Count 3.61 L 3.61 L Hemoglobin 10.6 L 10.6 L Hematocrit 32.6 L 32.1 L Mean Corpuscular Volume 90.3 88.9 Mean Corpuscular Hemoglobin 29.4 29.4 Mean Corpuscular Hemoglobin Concent 32.5 33.0 Red Cell Distribution Width 13.3 13.5 Platelet Count 508 #H 519 H Mean Platelet Volume 9.7 9.9 Immature Granulocytes % 0.800 H 0.900 H Neutrophils % 62.0 53.9 Lymphocytes % 19.9 20.9 Monocytes % 10.6 15.3 H Eosinophils % 5.8 7.9 H Basophils % 0.9 1.1 Nucleated Red Blood Cells % 0.0 0.0 Immature Granulocytes # 0.050 H 0.050 H Neutrophils # 3.9 2.9 Lymphocytes # 1.3 1.1 Monocytes # 0.7 0.8 Eosinophils # 0.4 0.4 Basophils # 0.1 0.1 Nucleated Red Blood Cells # 0.0 0.0 Urine Color YELLOW Urine Clarity CLEAR Urine pH 6.0 Urine Specific [place] 1.011 Urine Ketones NEGATIVE Urine Nitrite NEGATIVE Urine Bilirubin NEGATIVE Urine Urobilinogen NEGATIVE Urine Leukocyte Esterase NEGATIVE Urine Hemoglobin NEGATIVE Urine Glucose NEGATIVE Urine Total Protein NEGATIVE Sodium Level 135 Potassium Level 4.4 Chloride Level 101 Carbon Dioxide Level 27 Anion Gap 7 Blood Urea Nitrogen 10 Creatinine 0.72 Est Glomerular Filtrat Rate mL/min > 60 Glucose Level 98 Calcium Level 8.8 Phosphorus Level 3.8 Magnesium Level 2.1 Consultation Date/Type/Reason Admit Date/Time Jul 24, 2018 at 15:44 Initial Consult Date 07/25/18 Detailed Summary ENT: other (voice is less hoarse and sinus congestion is improving) Respiratory: No cough Cardiovascular: No chest pain Gastrointestinal: no complaints Genitourinary: no complaints Musculoskeletal: back pain (is much less) Exam/Review of Systems Vital Signs Vitals Vital Signs Date Temp Pulse Resp B/P (MAP) Pulse Ox O2 O2 Flow FiO2 Time Delivery Rate 07/30/18 98.8 95 20 121/56 97 Room Air 08:06 (77) 07/28/18 2.0 06:42 Intake and Output 07/29/18 07/29/18 07/30/18 1515:00 23:00 07:00 IntakeIntake Total 1050 ml 600 ml BalanceBalance 1050 ml 600 ml Exam Neck: No jvd Respiratory: clear to auscultation Cardiovascular: regular rate and rhythm Gastrointestinal: soft Extremities: No edema Medications Medications Current Medications Docusate Sodium (Colace) 100 mg BID PO Last administered on 07/29/18 08:58; Admin Dose 100 MG; Start 07/24/18 at 21:00 Senna (Senokot) 1 tab HS PO Last administered on 07/28/18 20:12; Admin Dose 1 TAB; Start 07/24/18 at 21:00 Magnesium Hydroxide (Milk Of Mag) 30 ml BID PRN PO CONSTIPATION; Start 07/24/18 at 16:00 Lactulose (Enulose) 20 gm DAILY PRN PO CONSTIPATION; Start 07/24/18 at 16:00 Bisacodyl (Dulcolax Supp) 10 mg DAILY PRN [place] CONSTIPATION; Start 07/24/18 at 16:00 Acetaminophen (Tylenol Tab) 650 mg Q4H PRN PO PAIN Last administered on 07/30/18 08:06; Admin Dose 650 MG; Start 07/24/18 at 16:00 [facility] This patient lopez... PRN PRN XX wound; Start 07/24/18 at 16:00 Al Hydrox/Mg Hydrox/Simethicone (Mag-Al Plus) 15 ml Q4 PRN PO upset stomach; Start 07/24/18 at 16:30 Amitriptyline HCl (Elavil) 25 mg HS PO Last administered on 07/29/18 21:04; Admin Dose 25 MG; Start 07/24/18 at 21:00 Docusate Sodium/ Ferrous Fumarate (Yue-Sequels) 1 tab BID PO Last administe red on 07/30/18 08:06; Admin Dose 1 TAB; Start 07/24/18 at 21:00 Estradiol (Estrace) 1 mg DAILY PO Last administered on 07/30/18 08:06; Admin Dose 1 MG; Start 07/25/18 at 09:00 Gabapentin (Neurontin) 300 mg BID PO Last administered on 07/30/18 08:06; Admin Dose 300 MG; Start 07/24/18 at 21:00 Acetaminophen/ Hydrocodone Bitart ([place] (5/325)) 1 tab Q4H PRN PO PAIN LEVEL 1-5; Start 07/24/18 at 16:30 Acetaminophen/ Hydrocodone Bitart ([place] (5/325)) 2 tab Q4H PRN PO PAIN LEVEL 6-10; Start 07/24/18 at 16:30 Levothyroxine Sodium (Synthroid) 150 mcg DAILY@06 PO Last administered on 07/30/18 06:26; Admin Dose 150 MCG; Start 07/25/18 at 06:00 Methocarbamol (Robaxin) 500 mg Q8H PRN PO muscle spasm ; Start 07/24/18 at 16:30 Naloxone HCl (Narcan) 0.2 mg ONCE PRN IV narcotic overdose; Start 07/24/18 at 16:30 Ondansetron HCl (Zofran Inj) 4 mg Q6H PRN IV NAUSEA AND/OR VOMITING; Start 1 09/24/17 at 16:30 Phenol (Cepastat Lozenge) 1 lozenge Q1H PRN [place] sore throat Last administered on 07/30/18 08:06; Admin Dose 1 LOZENGE; Start 07/24/18 at 16:30 Phenol (Chloraseptic Throat [place]) 2 spray Q2H PRN [place] SORE THROAT; Start 07/24/18 at 16:30 Prochlorperazine (Compazine) 10 mg Q4H PRN NGT NAUSEA AND/OR VOMITING; Start 07/24/18 at 16:30 Sodium Chloride ([place]) 2 spray BID NASAL Last administered on 07/30/18 08:06; Admin Dose 2 SPRAY; Start 07/29/18 at 10:00 FRANCESCA GARRISON MD Jul 30, 2018 10:25
[2018-07-30] MEDS ORDERED: DOCUSATE SODIUM 100 MG CAP PO PRN (11:00)
--- NOTE | 2018-07-30 11:15 | PN ---
Date/Time of Note Date/Time of Note DATE: 07/30/18 TIME: 11:13 Subjective Patient in good spirits, doing well Objective Vital Signs Date Temp Pulse Resp B/P (MAP) Pulse Ox O2 O2 Flow FiO2 Time Delivery Rate 07/30/18 98.8 95 20 121/56 97 Room Air 08:06 (77) 07/28/18 2.0 06:42 Intake and Output 07/29/18 07/29/18 07/30/18 1515:00 23:00 07:00 IntakeIntake Total 1050 ml 600 ml BalanceBalance 1050 ml 600 ml Exam s ambulation 200 feet sba transfers [id number] Results/Medications Result Diagram: 07/30/18 0716 07/30/18 0716 Results 24 hrs Laboratory Tests Test 07/29/18 16:40 07/29/18 16:45 07/30/18 07:16 White Blood Count 6.3 5.3 Red Blood Count 3.61 L 3.61 L Hemoglobin 10.6 L 10.6 L Hematocrit 32.6 L 32.1 L Mean Corpuscular Volume 90.3 88.9 Mean Corpuscular Hemoglobin 29.4 29.4 Mean Corpuscular Hemoglobin Concent 32.5 33.0 Red Cell Distribution Width 13.3 13.5 Platelet Count 508 #H 519 H Mean Platelet Volume 9.7 9.9 Immature Granulocytes % 0.800 H 0.900 H Neutrophils % 62.0 53.9 Lymphocytes % 19.9 20.9 Monocytes % 10.6 15.3 H Eosinophils % 5.8 7.9 H Basophils % 0.9 1.1 Nucleated Red Blood Cells % 0.0 0.0 Immature Granulocytes # 0.050 H 0.050 H Neutrophils # 3.9 2.9 Lymphocytes # 1.3 1.1 Monocytes # 0.7 0.8 Eosinophils # 0.4 0.4 Basophils # 0.1 0.1 Nucleated Red Blood Cells # 0.0 0.0 Urine Color YELLOW Urine Clarity CLEAR Urine pH 6.0 Urine Specific [place] 1.011 Urine Ketones NEGATIVE Urine Nitrite NEGATIVE Urine Bilirubin NEGATIVE Urine Urobilinogen NEGATIVE Urine Leukocyte Esterase NEGATIVE Urine Hemoglobin NEGATIVE Urine Glucose NEGATIVE Urine Total Protein NEGATIVE Sodium Level 135 Potassium Level 4.4 Chloride Level 101 Carbon Dioxide Level 27 Anion Gap 7 Blood Urea Nitrogen 10 Creatinine 0.72 Est Glomerular Filtrat Rate mL/min > 60 Glucose Level 98 Calcium Level 8.8 Phosphorus Level 3.8 Magnesium Level 2.1 Medications Current Medications Senna (Senokot) 1 tab HS PO Last administered on 07/28/18 20:12; Admin Dose 1 TAB; Start 07/24/18 at 21:00 Magnesium Hydroxide (Milk Of Mag) 30 ml BID PRN PO CONSTIPATION; Start 07/24/18 at 16:00 Lactulose (Enulose) 20 gm DAILY PRN PO CONSTIPATION; Start 07/24/18 at 16:00 Bisacodyl (Dulcolax Supp) 10 mg DAILY PRN [place] CONSTIPATION; Start 07/24/18 at 16:00 Acetaminophen (Tylenol Tab) 650 mg Q4H PRN PO PAIN Last administered on 07/30/18 08:06; Admin Dose 650 MG; Start 07/24/18 at 16:00 Miscellaneous Information [facility] This patient lopez... PRN PRN XX wound; Start 07/24/18 at 16:00 Al Hydrox/Mg Hydrox/Simethicone (Mag-Al Plus) 15 ml Q4 PRN PO upset stomach; Start 07/24/18 at 16:30 Amitriptyline HCl (Elavil) 25 mg HS PO Last administered on 07/29/18 21:04; Admin Dose 25 MG; Start 07/24/18 at 21:00 Docusate Sodium/ Ferrous Fumarate (Yue-Sequels) 1 tab BID PO Last administered on 07/30/18 08:06; Admin Dose 1 TAB; Start 07/24/18 at 21:00 Estradiol (Estrace) 1 mg DAILY PO Last administered on 07/30/18 08:06; Admin Dose 1 MG; Start 07/25/18 at 09:00 Gabapentin (Neurontin) 300 mg BID PO Last administered on 07/30/18 08:06; Admin Dose 300 MG; Start 07/24/18 at 21:00 Acetaminophen/ Hydrocodone Bitart ([place] (5/325)) 1 tab Q4H PRN PO PAIN LEVEL 1-5; Start 07/24/18 at 16:30 Acetaminophen/ Hydrocodone Bitart ([place] (5/325)) 2 tab Q4H PRN PO PAIN LEVEL 6-10; Start 07/24/18 at 16:30 Levothyroxine Sodium (Synthroid) 150 mcg DAILY@06 PO Last administered on 07/30/18at 06:26; Admin Dose 150 MCG; Start 07/25/18 at 06:00 Methocarbamol (Robaxin) 500 mg Q8H PRN PO muscle spasm ; Start 07/24/18 at 16:30 Naloxone HCl (Narcan) 0.2 mg ONCE PRN IV narcotic overdose; Start 07/24/18 at 16:30 Ondansetron HCl (Zofran Inj) 4 mg Q6H PRN IV NAUSEA AND/OR VOMITING; Start 07/24/18 at 16:30 Phenol (Cepastat Lozenge) 1 lozenge Q1H PRN MT sore throat Last administered on 07/30/18at 08:06; Admin Dose 1 LOZENGE; Start 07/24/18 at 16:30 Phenol (Chloraseptic Throat [place]) 2 spray Q2H PRN [place] SORE THROAT; Start 07/24/18 at 16:30 Prochlorperazine (Compazine) 10 mg Q4H PRN NGT NAUSEA AND/OR VOMITING; Start 07/24/18 at 16:30 Sodium Chloride (Deep Sea) 2 spray BID NASAL Last administered on 07/30/18at 08:06; Admin Dose 2 SPRAY; Start 07/29/18 at 10:00 Docusate Sodium (Colace) 100 mg BID PRN PO CONSTIPATION; Start 07/30/18 at 11:00; Status UNV Assessment/Plan Additional Assessment/Plan Rehab- Spinal stenosis, degenerative disk disease, adhesions and lumbar radiculopathy status post lumbar decompression and fusion. patient continues to progress. Continue treatment plan. Acute pain syndrome-under good control Status post acute renal failure. Hypothyroidism. Anemia. CADY BLACK MD Jul 30, 2018 11:15
--- NOTE | 2018-07-30 12:40 | NUR ---
Seen & examined by Dr Sanders & wound RN with a new order of Santyl in the back incision's black eschar area only. Noted & carried out. See wound dressing care order for details. Patient aware & agrees that upon discharge & as instructed by MD, incision site in the abdomen & back should be open to air. Will continue to monitor.
--- NOTE | 2018-07-30 12:46 | NUR ---
WOUND ASSESSMENT WITH DR. SANDERS FOR BACK INCISION: 67 year old female s/p anterior retroperitoneal fusion of lumbosacral spine on 07/17/[address] Fco Sanders. Lumbar-sacral incisions. Incisions dry, clean, and intact. There is an area of black eschar to the right side of incision. Approximately measured [id number]. Periwound intact without redness. No drainage. No odor. Patient denies pain. Recommended to cleanse with normal saline. Pat dry. Apply Santyl ointment to black eschar area only. Then, cover eschar area with cut-to-fit adaptic non-adherent strips. Cover with foam border dressing. Please notify Dr. Sanders and wound care nurse if any change of condition of incisions. Discussed with Dulce NORIEGA. - Sammie Tong, BSN RN CWOCN
[2018-07-30 14:00] VITALS: BP 122/66; PULSE 88; RESP 19
--- NOTE | 2018-07-30 17:12 | NUR ---
Patient ambulating with PT. Alert, oriented x 4. No SOB. Complained of mild pain so given PRN pain medication. Relieved after 30 minutes. Offered educational materials & TV for recreational activities. Wound dressing change done on patient's incision site in the back & abdomen. No redness & drainage noted. Wound clean & dry. Patient tolerated procedure well. Incision site seen by wound RN & Dr Sanders. Kept clean & dry. All due meds given. Kept comfortable.
[2018-07-30 20:00] VITALS: BP 127/67; PULSE 79; RESP 18
[2018-07-30] MEDS: SENNA TAB PO SCH (21:00)
[2018-07-30] MEDS: AMITRIPTYLINE 25 MG TAB PO SCH (21:06)
[2018-07-31] MEDS: CEPASTAT LOZENGE MT PRN ×4 (00:18→22:24)
--- NOTE | 2018-07-31 05:57 | NUR ---
End of Shift Note During the shift at 2114, pt was given Tylenol 650 mg PO as PRN medications for generalized body aches 11/04, it was effective. She refused Senokot 1 tab as standing order at 2099. Pt went to the toilet to pee 4x. She received 4 lozenges as PRN mediations for sore throat. Bed on lowest position, side rails up 2x, bed alarm on, and call light within the pt's reach. will continue to monitor.
[2018-07-31] MEDS: LEVOTHYROXINE 150 MCG TAB PO SCH (06:40)
[2018-07-31 07:50] VITALS: BP 133/59; PULSE 91; RESP 18
[2018-07-31] MEDS: SALINE 0.65% 45 ML NAS SPRAY NASAL SCH ×2 (08:51→21:17)
[2018-07-31] MEDS: ESTRADIOL 1 MG TAB PO SCH (08:52)
[2018-07-31] MEDS: FERROUS FUMARATE (SR) TAB PO SCH ×2 (08:52→21:18)
[2018-07-31] MEDS: GABAPENTIN 300 MG CAP PO SCH ×2 (08:52→08:56)
[2018-07-31] MEDS: COLLAGENASE 5 GM (UD JAR) TOP SCH (08:53)
--- NOTE | 2018-07-31 08:57 | NUR ---
Dr. Sanders made round this morning. L/S incision dressing changed. Cover incisions and may have shower. Gave discharge orders for 08/01/2018. Wound care nurse to follow-up pt today. Pt refused to take Gabapentin capsule stating that it makes her gain weight. Pt tolerating ongoing therapy with Nancy. Addendum: 07/31/18 at 1130 by CLAUDINE GORMAN RN Neurontin decreased to 100 mg po BID. Pt made aware.
--- NOTE | 2018-07-31 09:11 | CONS ---
Date/Time of Note Date/Time of Note DATE: 07/31/18 TIME: 09:09 Assessment/Plan Assessment/Plan Assessment/Plan 1. Doing quite well post op lumbar back surgery 2. Sinus congestion is improving as is hoarseness 3. Anemia is stable 4. DC is planned tomm Result Diagram: 07/30/1871507/30/18715 Consultation Date/Type/Reason Admit Date/Time Jul 24, 2018 at 15:44 Initial Consult Date 07/25/18 Detailed Summary ENT: sore throat (is better) Respiratory: shortness of breath; No cough Cardiovascular: chest pain Gastrointestinal: no complaints Genitourinary: no complaints Musculoskeletal: back pain (is less) Exam/Review of Systems Vital Signs Vitals Vital Signs Date Temp Pulse Resp B/P (MAP) Pulse Ox O2 O2 Flow FiO2 Time Delivery Rate 07/31/18 98.1 91 18 133/59 100 Room Air 07:50 (83) 07/28/18 2.0 06:42 Intake and Output 07/30/18 07/30/18 07/31/18 1515:00 23:00 07:00 IntakeIntake Total 550 ml 850 ml 300 ml BalanceBalance 550 ml 850 ml 300 ml Exam Neck: No jvd Respiratory: clear to auscultation Cardiovascular: regular rate and rhythm Gastrointestinal: soft Extremities: No edema, No tenderness Medications Medications Current Medications Senna (Senokot) 1 tab HS PO Last administered on 07/28/18at 20:12; Admin Dose 1 TAB; Start 07/24/18 at 21:00 Magnesium Hydroxide (Milk Of Mag) 30 ml BID PRN PO CONSTIPATION; Start 07/24/18 at 16:00 Lactulose (Enulose) 20 gm DAILY PRN PO CONSTIPATION; Start 07/24/18 at 16:00 Bisacodyl (Dulcolax Supp) 10 mg DAILY PRN [place] CONSTIPATION; Start 07/24/18 at 16:00 Acetaminophen (Tylenol Tab) 650 mg Q4H PRN PO PAIN Last administered on 07/30/18at 21:15; Admin Dose 650 MG; Start 07/24/18 at 16:00 Miscellaneous Information (Pending Santyl Order For Wound Care) This patient lopez... PRN PRN XX wound; Start 07/24/18 at 16:00 Al Hydrox/Mg Hydrox/Simethicone (Mag-Al Plus) 15 ml Q4 PRN PO upset stomach; Start 07/24/18 at 16:30 Amitriptyline HCl (Elavil) 25 mg HS PO Last administered on 07/30/18 21:06; Admin Dose 25 MG; Start 07/24/18 at 21:00 Docusate Sodium/ Ferrous Fumarate (Yue-Sequels) 1 tab BID PO Last administered on 07/31/18 08:52; Admin Dose 1 TAB; Start 07/24/18 at 21:00 Estradiol (Estrace) 1 mg DAILY PO Last administered on 07/31/18 08:52; Admin Dose 1 MG; Start 07/25/18 at 09:00 Gabapentin (Neurontin) 300 mg BID PO Last administered on 07/30/18 21:06; Admin Dose 300 MG; Start 07/24/18 at 21:00 Acetaminophen/ Hydrocodone Bitart ([place] (5/325)) 1 tab Q4H PRN PO PAIN LEVEL 1-5; Start 07/24/18 at 16:30 Acetaminophen/ Hydrocodone Bitart ([place] (5/325)) 2 tab Q4H PRN PO PAIN LEVEL 6-10; Start 07/24/18 at 16:30 Levothyroxine Sodium (Synthroid) 150 mcg DAILY@06 PO Last administered on 07/31/18 06:40; Admin Dose 150 MCG; Start 07/25/18 at 06:00 Methocarbamol (Robaxin) 500 mg Q8H PRN PO muscle spasm ; Start 07/24/18 at 16:30 Naloxone HCl (Narcan) 0.2 mg ONCE PRN IV narcotic overdose; Start 07/24/18 at 16:30 Ondansetron HCl (Zofran Inj) 4 mg Q6H PRN IV NAUSEA AND/OR VOMITING; Start 07/24/18 at 16:30 Phenol (Cepastat Lozenge) 1 lozenge Q1H PRN MT sore throat Last administered on 07/31/18 02:50; Admin Dose 1 LOZENGE; Start 07/24/18 at 16:30 Phenol (Chloraseptic Throat [place]) 2 spray Q2H PRN MT SORE THROAT; Start 07/24/18 at 16:30 Prochlorperazine (Compazine) 10 mg Q4H PRN NGT NAUSEA AND/OR VOMITING; Start 07/24/18 at 16:30 Sodium Chloride (Deep Sea) 2 spray BID NASAL Last administered on 07/31/18at 08:51; Admin Dose 2 SPRAY; Start 07/29/18 at 10:00 Docusate Sodium (Colace) 100 mg BID PRN PO CONSTIPATION; Start 07/30/18 at 11:00 Collagenase (Santyl) 1 applic DAILY TOP Last administered on 07/31/18at 08:53; Admin Dose 1 APPLIC; Start 07/31/18 at 09:00 FRANCESCA GARRISON MD Jul 31, 2018 09:11
--- NOTE | 2018-07-31 10:43 | PN ---
Date/Time of Note Date/Time of Note DATE: 07/31/18 TIME: 10:41 Subjective Voice quality improving; patient also reports pain under good control Objective Vital Signs Date Temp Pulse Resp B/P (MAP) Pulse Ox O2 O2 Flow FiO2 Time Delivery Rate 07/31/18 98.1 91 18 133/59 100 Room Air 07:50 (83) 07/28/18 2.0 06:42 Intake and Output 07/30/18 07/30/18 07/31/18 1515:00 23:00 07:00 IntakeIntake Total 550 ml 850 ml 300 ml BalanceBalance 550 ml 850 ml 300 ml Exam pulm-cta sba ambulation 200 feet Results/Medications Result Diagram: 07/30/1871507/30/18715 Medications Current Medications Senna (Senokot) 1 tab HS PO Last administered on 07/28/18 20:12; Admin Dose 1 TAB; Start 07/24/18 at 21:00 Magnesium Hydroxide (Milk Of Mag) 30 ml BID PRN PO CONSTIPATION; Start 07/24/18 at 16:00 Lactulose (Enulose) 20 gm DAILY PRN PO CONSTIPATION; Start 07/24/18 at 16:00 Bisacodyl (Dulcolax Supp) 10 mg DAILY PRN [place] CONSTIPATION; Start 07/24/18 at 16:00 Acetaminophen (Tylenol Tab) 650 mg Q4H PRN PO PAIN Last administered on 07/30/18 21:15; Admin Dose 650 MG; Start 07/24/18 at 16:00 Miscellaneous Information (Pending [facility] Order For Wound Care) This patient lopez... PRN PRN XX wound; Start 07/24/18 at 16:00 Al Hydrox/Mg Hydrox/Simethicone (Mag-Al Plus) 15 ml Q4 PRN PO upset stomach; Start 07/24/18 at 16:30 Amitriptyline HCl (Elavil) 25 mg HS PO Last administered on 07/30/18 21:06; Admin Dose 25 MG; Start 07/24/18 at 21:00 Docusate Sodium/ Ferrous Fumarate (Yue-Sequels) 1 tab BID PO Last administered on 07/31/18 08:52; Admin Dose 1 TAB; Start 07/24/18 at 21:00 Estradiol (Estrace) 1 mg DAILY PO Last administered on 07/31/18 08:52; Admin Dose 1 MG; Start 07/25/18 at 09:00 Acetaminophen/ Hydrocodone Bitart ([place] (5/325)) 1 tab Q4H PRN PO PAIN LEVEL 1-5; Start 07/24/18 at 16:30 Acetaminophen/ Hydrocodone Bitart ([place] (5/325)) 2 tab Q4H PRN PO PAIN LEVEL 6-10; Start 07/24/18 at 16:30 Levothyroxine Sodium (Synthroid) 150 mcg DAILY@06 PO Last administered on 07/31/18 06:40; Admin Dose 150 MCG; Start 07/25/18 at 06:00 Methocarbamol (Robaxin) 500 mg Q8H PRN PO muscle spasm ; Start 07/24/18 at 16:30 Naloxone HCl (Narcan) 0.2 mg ONCE PRN IV narcotic overdose; Start 07/24/18 at 16:30 Ondansetron HCl (Zofran Inj) 4 mg Q6H PRN IV NAUSEA AND/OR VOMITING; Start 07/24/18 at 16:30 Phenol (Cepastat Lozenge) 1 lozenge Q1H PRN MT sore throat Last administered on 07/31/18 02:50; Admin Dose 1 LOZENGE; Start 07/24/18 at 16:30 Phenol (Chloraseptic Throat [place]) 2 spray Q2H PRN MT SORE THROAT; Start 07/24/18 at 16:30 Prochlorperazine (Compazine) 10 mg Q4H PRN NGT NAUSEA AND/OR VOMITING; Start 07/24/18 at 16:30 Sodium Chloride ([place]) 2 spray BID NASAL Last administered on 07/31/18 08:51; Admin Dose 2 SPRAY; Start 07/29/18 at 10:00 Docusate Sodium (Colace) 100 mg BID PRN PO CONSTIPATION; Start 07/30/18 at 11:00 Collagenase (Santyl) 1 applic DAILY TOP Last administered on 07/31/18 08:53; Admin Dose 1 APPLIC; Start 07/31/18 at 09:00 Gabapentin (Neurontin) 100 mg BID PO ; Start 07/31/18 at 21:00 Assessment/Plan Additional Assessment/Plan Rehab- Spinal stenosis, degenerative disk disease, adhesions and lumbar rad iculopathy status post lumbar decompression and fusion. Patient doing very well, anticipate dc home tomorrow Integ- Patient to have home health RN for wound care follow up upon discharge Acute pain syndrome-under good control Status post acute renal failure. Hypothyroidism. Anemia. CADY BLACK MD Jul 31, 2018 10:43
--- NOTE | 2018-07-31 12:55 | NUR ---
Victor M of Radiology processed a CD. Pt received one CD from RN.
--- NOTE | 2018-07-31 13:18 | NUR ---
SOCIAL WORK NOTE: Pt to be discharged home tomorrow 08/01/18. Pt will receive a fww and commode at bedside on 08/01 from [place] [facility] [place] [phone], there is no specific timeframe. Once pt arrives home, within 2 days she will be followed up by [address] [phone]. Pt was made aware and in agreement.
[2018-07-31 13:39] VITALS: BP 128/68; PULSE 80; RESP 18
--- NOTE | 2018-07-31 14:46 | NUR ---
WOUND CARE FOLLOW UP FOR BACK INCISION: 67 year old female s/p anterior retroperitoneal fusion of lumbosacral spine on 07/17/[address] Fco Sanders. Lumbar-sacral incisions. Incisions dry, clean, and intact. There is an area of black eschar to the right side of incision. Approximately measured [id number]. Periwound intact without redness. No drainage. No odor. Patient denies pain. Discharge planning for 08/01/18 with surgeon follow up appointment next Friday. Patient is planned for home health for dressing changes. Recommend to adjust the following once discharged. Recommended to cleanse with normal saline. Pat dry. Apply Santyl ointment to black eschar area only. Then, cover eschar area with cut-to-fit adaptic non-adherent strips. [place] remaining approximated incisions with Betadine and allow to dry then follow with dry 4x4 gauze. Cover with ABD dressing and secure with paper tape or Medipore tape if available. Change dressing daily. Follow up with Dr. Sanders as outpatient once discharge. Patient was seen and plan of care discussed with current primary RN Gay Albarado, MSN, RN, CCRN, WCC
[2018-07-31 20:00] VITALS: BP_SYST 150; BP_SYST 156; BP_DIAS 68; PULSE 90; RESP 18
[2018-07-31] MEDS: AMITRIPTYLINE 25 MG TAB PO SCH (21:00)
[2018-07-31] MEDS: SENNA TAB PO SCH (21:00)
[2018-07-31] MEDS: GABAPENTIN 100 MG CAP PO SCH (21:18)
[2018-07-31] MEDS: ACETAMINOPHEN 325 MG TAB PO PRN (21:22)
[2018-08-01 02:00] VITALS: BP 135/63; PULSE 84; RESP 16
[2018-08-01] MEDS: ACETAMINOPHEN 325 MG TAB PO PRN (04:58)
[2018-08-01] MEDS: CEPASTAT LOZENGE MT PRN (04:58)
[2018-08-01] MEDS: LEVOTHYROXINE 150 MCG TAB PO SCH (04:58)
--- NOTE | 2018-08-01 05:39 | NUR ---
Pt slept on and off during night hours, c/o generalized pain, tablet Tylenol 650mg by mouth Q4hrs prn given x 2 times, using nasal spray and throat lozenges as ordered, vital signs stable. Pt kept on fall and spinal precaution, no bending, twisting, lifting or crossing of legs. Log roll technique used during transfer on and off bed. Pt verbalized understanding regarding spinal precaution. Using LS corset when getting OOB. Pt walked on the hallway x 2 times using FWW, last night and copy reader supervised by RN. Able to turn position by self. Continent for bladder and bowel, voids in the rest room, no BM noted. Hourly rounds done and patient care needs met. Bed alarm activated for safety, call light and bedside table within reach.
[2018-08-01 07:42] VITALS: BP 155/70; PULSE 81; RESP 18
[2018-08-01] MEDS: FERROUS FUMARATE (SR) TAB PO SCH (08:12)
[2018-08-01] MEDS: ESTRADIOL 1 MG TAB PO SCH (08:12)
[2018-08-01] MEDS: GABAPENTIN 100 MG CAP PO SCH (08:12)
[2018-08-01] MEDS: COLLAGENASE 5 GM (UD JAR) TOP SCH (08:12)
[2018-08-01] MEDS: SALINE 0.65% 45 ML NAS SPRAY NASAL SCH (09:00)
--- NOTE | 2018-08-01 10:51 | CONS ---
Date/Time of Note Date/Time of Note DATE: 08/01/18 TIME: 10:50 Assessment/Plan Assessment/Plan Result Diagram: 07/30/18 0716 07/30/18 0716 Results 24hrs 1. Doing very well post op lumbar back surg 2. Hoarseness continues to improve. 3. Can be discharged Consultation Date/Type/Reason Admit Date/Time Jul 24, 2018 at 15:44 Initial Consult Date 07/25/18 Detailed Summary ENT: other (voice is better, less hoarse) Respiratory: No cough, No shortness of breath Cardiovascular: no complaints Gastrointestinal: no complaints Genitourinary: no complaints Musculoskeletal: back pain (is less) Exam/Review of Systems Vital Signs Vitals Vital Signs Date Temp Pulse Resp B/P (MAP) Pulse Ox O2 O2 Flow FiO2 Time Delivery Rate 08/01/18 98.3 81 18 155/70 97 Room Air 07:42 (98) Intake and Output 07/31/18 07/31/18 08/01/18 1515:00 23:00 07:00 IntakeIntake Total 350 ml OutputOutput Total 900 ml BalanceBalance -550 ml Exam Neck: No jvd Respiratory: clear to auscultation Cardiovascular: regular rate and rhythm Gastrointestinal: soft Extremities: No edema, No tenderness Medications Medications Current Medications Senna (Senokot) 1 tab HS PO Last administered on 07/28/18at 20:12; Admin Dose 1 TAB; Start 07/24/18 at 21:00 Magnesium Hydroxide (Milk Of Mag) 30 ml BID PRN PO CONSTIPATION; Start 07/24/18 at 16:00 Lactulose (Enulose) 20 gm DAILY PRN PO CONSTIPATION; Start 07/24/18 at 16:00 Bisacodyl (Dulcolax Supp) 10 mg DAILY PRN [place] CONSTIPATION; Start 07/24/18 at 16:00 Acetaminophen (Tylenol Tab) 650 mg Q4H PRN PO PAIN Last administered on 08/01/18a t 04:58; Admin Dose 650 MG; Start 07/24/18 at 16:00 [facility]isc[facility] This patient lopez... PRN PRN XX wound; Start 07/24/18 at 16:00 Al Hydrox/Mg Hydrox/Simethicone (Mag-Al Plus) 15 ml Q4 PRN PO upset stomach; Start 07/24/18 at 16:30 Amitriptyline HCl (Elavil) 25 mg HS PO Last administered on 07/30/18 21:06; Admin Dose 25 MG; Start 07/24/18 at 21:00 Docusate Sodium/ Ferrous Fumarate (Yue-Sequels) 1 tab BID PO Last administered on 08/01/18 08:12; Admin Dose 1 TAB; Start 07/24/18 at 21:00 Estradiol (Estrace) 1 mg DAILY PO Last administered on 08/01/18 08:12; Admin Dose 1 MG; Start 07/25/18 at 09:00 Acetaminophen/ Hydrocodone Bitart ([place] (5/325)) 1 tab Q4H PRN PO PAIN LEVEL 1-5 Last administered on 08/01/18 08:12; Admin Dose 1 TAB; Start 07/24/18 at 16:30 Acetaminophen/ Hydrocodone Bitart ([place] (5/325)) 2 tab Q4H PRN PO PAIN LEVEL 6-10; Start 07/24/18 at 16:30 Levothyroxine Sodium (Synthroid) 150 mcg DAILY@06 PO Last administered on 08/01/18 04:58; Admin Dose 150 MCG; Start 07/25/18 at 06:00 Methocarbamol (Robaxin) 500 mg Q8H PRN PO muscle spasm ; Start 07/24/18 at 16:30 Naloxone HCl (Narcan) 0.2 mg ONCE PRN IV narcotic overdose; Start 07/24/18 at 16:30 Ondansetron HCl (Zofran Inj) 4 mg Q6H PRN IV NAUSEA AND/OR VOMITING; Start 07/24/18 at 16:30 Phenol (Cepastat Lozenge) 1 lozenge Q1H PRN MT sore throat Last administered on 08/01/18 04:58; Admin Dose 1 LOZENGE; Start 07/24/18 at 16:30 Phenol (Chloraseptic Throat [place]) 2 spray Q2H PRN MT SORE THROAT; Start 07/24/18 at 16:30 Prochlorperazine (Compazine) 10 mg Q4H PRN NGT NAUSEA AND/OR VOMITING; Start 07/24/18 at 16:30 Sodium Chloride ([place]) 2 spray BID NASAL Last administered on 1/4/19at 21:17; Admin Dose 2 SPRAY; Start 07/29/18 at 10:00 Docusate Sodium (Colace) 100 mg BID PRN PO CONSTIPATION; Start 07/30/18 at 11:00 Collagenase (Santyl) 1 applic DAILY TOP Last administered on 08/01/18at 08:12; Admin Dose 1 APPLIC; Start 07/31/18 at 09:00 Gabapentin (Neurontin) 100 mg BID PO Last administered on 08/01/18at 08:12; Admin Dose 100 MG; Start 07/31/18 at 21:00 FRANCESCA GARRISON MD Aug 01, 2018 10:51
--- NOTE | 2018-08-01 11:31 | DS ---
Date/Time of Note Date/Time of Note DATE: 08/01/18 TIME: 11:30 Discharge Summary Admission/Discharge Info Admit Date/Time Jul 24, 2018 at 15:44 Discharge Date/Time Discharge Diagnosis 1. Spinal stenosis, degenerative disk disease, adhesions and lumbar radiculopa thy status post lumbar decompression and fusion 2. Status post acute renal failure. 3. Hypothyroidism. 4. Postop hypotension, improved 5. Anemia. 6. Improvements in self-care and mobility. Patient Condition: Good Hospital Course The patient was admitted for comprehensive interdisciplinary rehabilitation and made steady functional gains from a Mod level to a PA level for self care tasks and mobility including ambulating over 150 feet with the use of a FWW. Patient is being discharged home with the recommendation of home health PT, OT and RN follow up. The DC meds are per the medication reconciliation sheet. The discharge equipment recommendations include: FWW, BSC, shower chair. The patient will follow up with PMD upon DC. Home Meds Reported Medications Gabapentin* (Gabapentin*) 300 Mg Capsule, 300 MG PO BID, #60 CAP 07/17/18 Estradiol* (Estrace*) 1 Mg Tablet, 1 MG PO DAILY, TAB 07/17/18 Levothyroxine Sodium* (Levoxyl*) 150 Mcg Tablet, 150 MCG PO BEFORE BREAKFAST, #30 TAB 07/17/18 Amitriptyline Hcl* (Amitriptyline Hcl*) 25 Mg Tablet, 25 MG PO QHS, #30 TAB 07/17/18 Primary Care Provider Not On Staff Doctor CADY BLACK MD Aug 01, 2018 11:31
--- NOTE | 2018-08-01 13:39 | NUR ---
[employer] injection mold technician Summary Date of Discharge: 08/01/18 Patient Name: MARIETTA MARINO MR#: [id number] Height: 5 ft 5 in Weight: 242 lbs 4.608 oz 109.900 kg Reason for Visit: NEUROLOGIC CONDITION C3- L4 SEVERE DEGENERATIVE DI Precautions: Date: 08/01/18 Time: 1339 User: BRYAN MILLER Patient's progress, Adm-->DC: Short-term Goals:met 1. pain control 2. ambulate 3. proper brace application 4. 5. Short-term goals not met and reason/barriers: Achievement of Long-term Goals:met Long-term Goals not met and reason/barriers: Bladder - level of function and accidents: 7/0 Bowel - level of function and accidents: 7/0 Skin: low back and abdominal incisions Status:healing, small area os eschar on back incision Treatment:santyl, adaptic and dry dressing to back. Mepilex AG to abd incision Changes:improved Pain:no Level:1 Location: back Management:tylenol po Changes:improved Functional levels: Self Care:6 Transfers: 5 Locomotion: 5 Assistance requirements:FWW,3 in 1 commode Communication: 7 Social Cognition: 7 Safety awareness: good Interdisciplinary interactions:PT, OT, nursing Patient education:fall prevention and home modifications [facility]charge [facility] PT, OT, nursing for wound care Comorbid conditions:obesity
--- NOTE | 2018-08-01 14:32 | NUR ---
Patient discharged home in stable condition with all belongings and discharge instructions. She refused any new prescriptions, and was instructed to resume home medications by Dr. Becerril. No distress noted, she denied pain or discomfort at time of discharge, and was wearing back brace. Home health to follow, dressing change done to back and abdomen before discharge.
--- NOTE | 2018-08-03 09:49 | NUR ---
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 Bed mobility with log rolling with SUP 2. All transfers with LSO and good safety awareness with SUP 3. Gait with AD 200ft 4. up/down 1 flight stairs with SPC and 1 rail with SUP Pt made good gains during her stay at [facility]. At the time of eval, pt was mod assist for bed mobility, mod assist for transfers, mod assist for gait 75ft with FWW. At the time of dc, pt was independent for bed mobility, independent/mod ind for transfers, mod ind for gait using FWW 350ft, mod ind for uneven surface using FWW, mod ind for stairs 15 steps. Mod Ind for donning/doffing LSO brace. Mod Ind for car transfer. Pt met all LTG's. Recommended: FWW, BSC, home with HHPT. Pt dc'd home.
--- NOTE | 2018-08-07 11:31 | NUR ---
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 Indep w/ Grooming 2. Supervision w/ Bathing 3. Indep/ MOd I w/ UB/LB dress 4. Mod I w/ Toileting Upon admission w/ pt has the following levels: Grooming: Min A, BAthing: Mod A, UB/LB dress: Sup/ Max, Toileting: Mod A, Functional transfers: Min A. Pt met all OT goals through ADL retraining, NMRE, thera ex and actv, pt and cg education. Upon d/c pt has the following levels: Grooming: Indep, Bathing: Supervision, UB/LB dressing: Indep/ Mod I, TOileting: Mod I. Pt d/jerman home w/ HH.
== END 2018-08-01 14:00 | disposition home health service (06) | DRG 561 ==
LOC: VRC 15:44
PROVIDERS: ADMIT Physical Medicine & Rehabilitation; ATTEND Orthopaedic Surgery
PROC: F07Z5ZZ Bed Mobility Treatment (ICD-10-PCS; principal; 2018-07-25)
PROC: F07Z8ZZ Transfer Training Treatment (ICD-10-PCS; 2018-07-25)
PROC: F07Z9ZZ Gait Training/Functional Ambulation Treatment (ICD-10-PCS; 2018-07-25)
PROC: F08Z2ZZ Grooming/Personal Hygiene Treatment (ICD-10-PCS; 2018-07-26)
PROC: F08Z0ZZ Bathing/Showering Techniques Treatment (ICD-10-PCS; 2018-07-26)
DX: Z47.89 Encounter for other orthopedic aftercare (principal); Z98.1 Arthrodesis status; R68.2 Dry mouth, unspecified; J02.9 Acute pharyngitis, unspecified; E03.9 Hypothyroidism, unspecified; D64.9 Anemia, unspecified; G89.18 Other acute postprocedural pain; R09.81 Nasal congestion
CPT/HCPCS: 72100; 80048; 80053; 81003; 83735; 84100; 85025; 87040; 87081; 87086; 97110; 97112; 97116; 97163; 97167; 97530; 97535